=== PATIENT | female | born 1985 | race Hispanic/Latino ===

== ENCOUNTER 2019-03-20 15:38 | Outpatient (CLI) | payer OTHER ==
--- NOTE | 2019-03-20 16:41 | ULT ---
Obstetric sonogram HISTORY: evaluation. Second trimester gestation. FINDINGS: Single intrauterine gestation in variable presentation. Cervix is closed and at least 3.5 c m. Amniotic fluid is within normal limits. Grade 0 placenta is posterior. Early images show the lower placental tip to be somewhat low-lying. After voiding, the placenta was well clear of the inter nal os. No gross intracranial abnormalities are apparent. Four-chamber heart shows motion at 146 bpm. Three-v essel cord shows a normal insertion. spine and kidneys are intact as visualized. Measurements are as follows: Biparietal diameter 21 weeks 5 days. Head circumference 20 weeks 2 days. Abdominal circumference 20 weeks 6 days. Femur length 20 weeks 0 days. Hadlock 36 percentile. Estimated date of delivery 08/01/2019. IMPRESSION: Single viable intrauterine gestation. Estimated gestational age based on today's sonogram 20 weeks 6 days.
== END 2019-03-20 15:39 | disposition home or self-care (01) ==
LOC: BICULT 15:38
PROVIDERS: ATTEND Family Medicine
DX: Z34.82 Encounter for supervision of other normal pregnancy, second trimester (principal); Z3A.20 20 weeks gestation of pregnancy
CPT/HCPCS: 76805

== ENCOUNTER 2019-07-25 08:55 | Inpatient (IN) | payer OTHER ==
[2019-07-25] MEDS ORDERED: Ibuprofen 800 MG TAB PO PRN (09:52)
[2019-07-25] MEDS ORDERED: NS / Oxytocin 40 units/1000ml 1,000 ML IV PRN (09:52)
[2019-07-25] MEDS ORDERED: hydrALAZINE 20 MG/ML VIAL SLOW IVP PRN ×2 (09:52→13:46)
[2019-07-25] MEDS ORDERED: Acetaminophen/Codeine 30-300mg Tablet PO PRN (09:52)
[2019-07-25] MEDS ORDERED: Ondansetron PF 4 MG/2 ML Vial IVP PRN ×2 (09:52→13:46)
[2019-07-25] MEDS ORDERED: Butorphanol Tartrate 1 MG/ML VIAL SLOW IVP PRN (09:52)
[2019-07-25] MEDS ORDERED: Lidocaine 1% (PF) 30 ML VIAL SC PRN (09:52)
[2019-07-25] MEDS ORDERED: Penicillin G 2.5 MILL.units 2.5 MILL.UNITS in Premix Bag 1 BAG IVPB SCH (10:00)
[2019-07-25] MEDS ORDERED: Lactated Ringer's 1,000 ML IV SCH ×2 (10:00)
[2019-07-25] MEDS ORDERED: Penicillin G Potassium 5 MILL.UNITS in Sodium Chloride 0.9% 100 ML IVPB SCH (10:00)
[2019-07-25 10:34] LABS: Hemoglobin 12.8 g/dL (12.0-16.0); Mean Corpuscular HGB CONC 36.1 g/dL (32.0-36.0); Mean Corpuscular Hemoglobin 34.4 pg (27.0-31.0); Mean Corpuscular Volume 95.2 fL (78.0-98.0); Mean Platelet Volume 10.1 fL (7.4-10.4); Platelet Count 141 thou/uL (130-400); RBC Distribution Width 12.3 % (11.5-14.5); Red Blood Cell (RBC) Count 3.73 mill/uL (4.20-5.40)
[2019-07-25] MEDS ORDERED: Lidocaine 1% (PF) 30 ML VIAL ONE (10:53)
[2019-07-25] MEDS ORDERED: NS / Oxytocin 40 units/1000ml 1,000 ML ONE (10:53)
[2019-07-25 11:17] LABS: HBSAg Index 0.24 S/CO (0-0.99); Hep B Surf Ag Non-Reactive S/CO (NonReactive)
[2019-07-25 11:18] LABS: Syphilis Antibody Nonreactive (Nonreactive); Syphilis Antibody Index 0.04 S/CO (<1.00 Non-Reactive)
--- NOTE | 2019-07-25 12:44 | PRG ---
DATE OF SERVICE: 07/25/2019 PRIMARY OB: Kimberly. CHIEF COMPLAINT: Right-sided pelvic pain. HISTORY OF PRESENT ILLNESS: The patient is a 33-year-old G4, P3 female with an intrauterine at 35 weeks, presenting to Labor and Delivery from work, having right-sided lower pelvic pain that worsens with activity and movement. She also reports she feels a lot of pressure. This pain has began this morning. She denies any uterine contractions. She denies any previous history of these pains. She does report that she works at [employer] and requiring a lot of physical activity. The patient denies fever, illness, cough, chest pain, shortness of breath, headache, nausea, vomiting, diarrhea, constipation, hip problems, knee problems, muscle weakness. She does report some lower back pain. Denies vaginal bleeding, leakage of fluid, urinary urgency or frequency. She denies any new rashes. PAST MEDICAL HISTORY: Negative. PAST SURGICAL HISTORY: Negative. ALLERGIES: NO KNOWN DRUG ALLERGIES. MEDICATIONS: vitamins. SOCIAL HISTORY: Denies drug, alcohol, or tobacco use. OB LABS: Unavailable at the time of dictation. REVIEW OF SYSTEMS: Per HPI. PHYSICAL EXAMINATION: VITAL SIGNS: Blood pressure 130/70, heart rate of 85, saturating 99% on room air, respiratory rate 18. GENERAL: The patient appears to be in some discomfort, however, in no acute distress. She is alert, oriented, cooperative, and pleasant to interact with. HEAD: Normocephalic, atraumatic. LUNGS: Clear to auscultation bilaterally. HEART: Has regular rate and rhythm. ABDOMEN: Gravid, soft. She does have nontender, however, she has pain in that right lower ligament region with deviation of the uterus to the left. Cervix is closed per nursing staff. EXTREMITIES: Nontender, nonedematous. heart tracing shows the fetus with a baseline in the 140s with moderate long-term variability. Positive 15 x 15 accelerations. Tocometer shows some irritability, however, do not see any regular contractions. ASSESSMENT AND PLAN: The patient is a 33-year-old female having musculoskeletal pains of , likely exacerbated by work. She has been asked to go home and rest for today. Tylenol, heating pad for some comfort measures. She has an appointment tomorrow with her primary OB, that we have encouraged that she keep. The patient has been given labor precautions. Fetus has a category 1 tracing and reactive NST. Job ID: [id number]
[2019-07-25] MEDS ORDERED: NS / Oxytocin 40 units/1000ml 1,000 ML IV SCH (13:46)
[2019-07-25] MEDS ORDERED: Preparation H Ointment 28 GM TUBE PR PRN (13:46)
[2019-07-25] MEDS ORDERED: HYDROcodone/Acetaminophen 5/325 mg Tablet PO PRN ×2 (13:46)
[2019-07-25] MEDS ORDERED: Adacel (T-DAP) 0.5 ML SYRINGE IM ONE (13:46)
[2019-07-25] MEDS ORDERED: Bisacodyl 10 MG SUPP PR PRN (13:46)
[2019-07-25] MEDS ORDERED: diphenhydrAMINE 25 MG CAP PO PRN (13:46)
[2019-07-25] MEDS ORDERED: Lanolin Ointment 7 GM TUBE TOP PRN (13:46)
[2019-07-25] MEDS ORDERED: Milk Of Magnesia 30 ML UDCUP PO PRN (13:46)
[2019-07-25] MEDS ORDERED: Benzocaine-Menthol 82.5 ML CAN TOP PRN (13:46)
[2019-07-25] MEDS ORDERED: Promethazine HCl 25 MG/ML VIAL IM PRN (13:46)
[2019-07-25 13:47] VITALS: BMI 34.0
[2019-07-25] MEDS: Ibuprofen 800 MG TAB PO SCH ×2 (19:01→21:37)
[2019-07-25] MEDS: Ferrous Sulfate 325 MG TAB PO SCH (19:01)
[2019-07-25] MEDS: Docusate Calcium (SURFAK) 240 MG CAP PO SCH (21:37)
[2019-07-26] MEDS: Ibuprofen 800 MG TAB PO SCH ×3 (06:11→21:29)
[2019-07-26 06:30] LABS: Hemoglobin 11.4 g/dL (12.0-16.0); Mean Corpuscular HGB CONC 35.1 g/dL (32.0-36.0); Mean Corpuscular Hemoglobin 33.8 pg (27.0-31.0); Mean Corpuscular Volume 96.4 fL (78.0-98.0); Mean Platelet Volume 10.1 fL (7.4-10.4); Platelet Count 120 thou/uL (130-400); RBC Distribution Width 12.3 % (11.5-14.5); Red Blood Cell (RBC) Count 3.38 mill/uL (4.20-5.40); White Blood Cell (WBC) Count 9.6 thou/uL (4.8-10.8)
[2019-07-26] MEDS: Ferrous Sulfate 325 MG TAB PO SCH ×2 (08:29→15:23)
[2019-07-26] MEDS: Docusate Calcium (SURFAK) 240 MG CAP PO SCH ×2 (08:59→21:29)
[2019-07-26] MEDS: Prenatal Vitamin 1 TAB PO SCH (08:59)
[2019-07-27] MEDS: Ibuprofen 800 MG TAB PO SCH ×2 (06:34→13:49)
[2019-07-27 08:24] VITALS: BP 122/67; TEMP 99.8
[2019-07-27] MEDS: Prenatal Vitamin 1 TAB PO SCH (09:14)
[2019-07-27] MEDS: Docusate Calcium (SURFAK) 240 MG CAP PO SCH (09:14)
[2019-07-27] MEDS: Ferrous Sulfate 325 MG TAB PO SCH ×2 (09:16→18:28)
== END 2019-07-27 18:55 | disposition home or self-care (01) | DRG 807 ==
LOC: L&D/OP 08:55 → L&D-LIB 09:52 → L&D 12:27 → 3SE 12:45
PROVIDERS: ADMIT Family Medicine; ATTEND Family Medicine
PROC: 10E0XZZ Delivery of Products of Conception, External Approach (ICD-10-PCS; principal; 2019-07-25)
PROC: 0KQM0ZZ Repair Perineum Muscle, Open Approach (ICD-10-PCS; 2019-07-25)
PROC: 10907ZC Drainage of Amniotic Fluid, Therapeutic from Products of Conception, Via Natural or Artificial Opening (ICD-10-PCS; 2019-07-25)
PROC: 3E033VJ Introduction of Other Hormone into Peripheral Vein, Percutaneous Approach (ICD-10-PCS; 2019-07-25)
DX: O77.0 Labor and delivery complicated by meconium in amniotic fluid (principal); Z37.0 Single live birth; O99.824 Streptococcus B carrier state complicating childbirth; O70.1 Second degree perineal laceration during delivery; Z3A.39 39 weeks gestation of pregnancy
CPT/HCPCS: 36415; 85027; 86780; 86850; 86900; 86901; 87340; 88307; 99285; J2001

== ENCOUNTER 2022-08-17 15:02 | Outpatient (CLI) | payer BC, OTHER | END 2022-08-17 15:03 | disposition home or self-care (01) | LOC: BICULT 15:02 | PROVIDERS: ATTEND Family Medicine | DX: O09.523 Supervision of elderly multigravida, third trimester (principal); O32.1XX0 Maternal care for breech presentation, not applicable or unspecified; Z3A.31 31 weeks gestation of pregnancy | CPT/HCPCS: 76805 ==